=== PATIENT | male | born 1960 | race Caucasian/White ===

== ENCOUNTER 2016-12-13 20:00 | Emergency (ER) | payer OTHER ==
[~2016-12-13] VITALS: Ht 172.7 cm; Wt 69.5 kg
[2016-12-13 20:10] VITALS: Ht 172.7 cm; Wt 69.5 kg
[2016-12-13] MEDS ORDERED: NO ROUTINE MEDS (20:45)
--- NOTE | 2016-12-13 21:20 | ERPDOC ---
Departure Disposition Decision Date: December 13, 2016 Disposition Decision Time: 23:22 Disposition: 01 DISCHARGED HOME, SELF-CARE Impression Impression Impression: Primary Impression: Gastroenteritis Additional Impressions: Visual complaint Shoulder pain, right Chronicity: acute Qualified Codes: M25.511 - Pain in right shoulder Condition: Improved Seen By: Mid-level only Referrals: DOMINICK HORN II, MD (Family) Patient Instructions: Gastroenteritis (ED) Problems/Meds/Labs Reviewed?: Yes Medications reviewed and manag: Yes Additional Instructions: The CT of your head did not show any acute findings. Your labs were normal except for slight a elevation of your sodium and chloride which indicates you are dry. Drink plenty of fluids to hydrate. You may take 800mg of ibuprofen or OTC Aleve twice for shoulder pain (take with food). Follow with your eye doctor for re-evaluation of left eye if symptoms persist. Follow with your PCP if your symptoms are not improving. You may return to the ED (as discussed in return precautions). Follow treatment plan (see discharge symptoms). Follow up care ordered?: Yes Mental Status: Alert, Oriented HPI - General Medical General Chief Complaint: Dizzy Stated Complaint: PAIN IN NECK, DIZZY,NAUSEA Time Seen by Provider: 21:08 Source: patient HPI - General Medical Allergies: Coded Allergies: No Known Drug Allergies (Verified Allergy, Unknown, 12/13/16) Past History Vaccines Hx Pneumococcal Vaccination: Yes Physical Exam General Vitals and Pain First Documented Vital Signs Date Time Temp Pulse Resp B/P Pulse Ox O2 Delivery O2 Flow Rate FiO2 12/13/16 20:10 98.0 70 18 184/88 99 Room Air Weight: Kilograms: 69.500 Height (feet): 5 Height (inches): 8.00 Triage Pain Scale: Progress Results/Orders Orders Procedure Category Date Status Time Cmp - Comprehensive LAB 12/13/16 Complete Metabolic 21:37 Cbc W/Auto LAB 12/13/16 Complete Diff-Reflex Manual 21:37 Troponin I W LAB 12/13/16 Complete Hemolysis Index 21:37 Ua, Dip Wreflex LAB 12/13/16 Complete Microsc & News Intern 21:37 Ct Head W/O Contrast CT 12/13/16 Taken 21:37 Orthostatic Bp/Pulse EDM 12/13/16 Transmitted 21:37 Lab Results Laboratory Tests Test 12/13/16 21:52 12/13/16 22:41 Urine Collection Type Voided-not cc-midstr Urine Color Yellow Urine Turbidity Clear Urine pH 6.5 Urine Specific [place] <=1.005 Urine Protein Negative Urine Glucose (UA) Negative Urine Ketones Negative Urine Blood Negative Urine Nitrite Negative Urine Bilirubin Negative Urine Urobilinogen 0.2EU/DL Urine Leukocyte Esterase Negative Urinalysis Comment Microscopic not ind. White Blood Count 9.1T/MM3 Red Blood Count 4.66M/MM3 Hemoglobin 14.6GM/DL Hematocrit 41.8% Mean Corpuscular Volume 89.7UM3 Mean Corpuscular Hemoglobin 31.3UUG Mean Corpuscular Hemoglobin Concent 34.9GM/DL RDW Standard Deviation 37.7FL Platelet Count 210T/MM3 Mean Platelet Volume 9.9UM3 Immature Granulocyte % (Auto) 0.2% Neutrophils (%) (Auto) 50.3% Lymphocytes (%) (Auto) 37.2% Monocytes (%) (Auto) 9.5% Eosinophils (%) (Auto) 2.0% Basophils (%) (Auto) 0.8% Absolute Immature Granulocyte (auto 0.02T/MM3 Absolute Neutrophils (auto) 4.6T/MM3 Absolute Lymphocytes (auto) 3.4T/MM3 Absolute Monocytes (auto) 0.9T/MM3 Absolute Eosinophils (auto) 0.2T/MM3 Absolute Basophils (auto) 0.1T/MM3 Turbidity < 20 Sodium Level 145MEQ/L Potassium Level 4.1MEQ/L Chloride Level 108MEQ/L Carbon Dioxide Level 26MEQ/L Anion Gap 11MEQ/L Blood Urea Nitrogen 18.0MG/DL Creatinine 0.8MG/DL Glomerular Filtration Rate Calc 99 BUN/Creatinine Ratio 23RATIO Glucose Level 97MG/DL Calculated Osmolality 281MOSM/KG Calcium Level 9.0MG/DL Total Bilirubin 1.10MG/DL Icterus Index < 2 Aspartate Amino Transf (AST/SGOT) 23U/L Alanine Aminotransferase (ALT/SGPT) 34U/L Alkaline Phosphatase 71U/L Troponin I < 0.012ng/ml Total Protein 6.9G/DL Albumin 4.4G/DL Globulin 2.5G/DL Albumin/Globulin Ratio 1.8RATIO Chemistry Specimen Hemolysis < 15 CT CT : CT: Head no contrast (chest) Interpretation: Normal (no acute findings), Faxed Report LOTTIE VILLASENOR [employer] DES[employer] December 13, 2016 21:20
[2016-12-13 22:09] LABS: BLOOD, URINE NEGATIVE (NEGATIVE); COLOR,URINE YELLOW (YELLOW); LEUKOCYTE ESTERASE ,URINE NEGATIVE (NEGATIVE); NITRITE,URINE NEGATIVE (NEGATIVE); UROBILINOGEN,URINE 0.2 EU/DL (NORMAL)
[2016-12-13 22:47] LABS: BASOPHILS # (AUTO) 0.1 T/MM3 (0-0.2); BASOPHILS % (AUTO) 0.8 % (0-2); EOSINOPHILS # (AUTO) 0.2 T/MM3 (0-0.5); HCT - HEMATOCRIT 41.8 % (41-53); HGB - HEMOGLOBIN 14.6 GM/DL (13.5-17.5); IMMATURE GRANULOCYTE # (AUTO) 0.02 T/MM3 (0.00-0.03); IMMATURE GRANULOCYTE % (AUTO) 0.2 % (0.0-0.5); LYMPHOCYTES # (AUTO) 3.4 T/MM3 (1-4.8); LYMPHOCYTES % (AUTO) 37.2 % (23-45); MEAN CORPUSCULAR HGB 31.3 UUG (26-34); MEAN CORPUSCULAR HGB CONC(MCHC 34.9 GM/DL (31-37); MEAN CORPUSCULAR VOLUME 89.7 UM3 (80-100); MEAN PLATELET VOLUME 9.9 UM3 (9.4-12.4); MONOCYTES # (AUTO) 0.9 T/MM3 (0-0.8); MONOCYTES % (AUTO) 9.5 % (0-9.0); NEUTROPHILS #(AUTO)-ABSOLUTE 4.6 T/MM3 (1.8-7.7); NEUTROPHILS % (AUTO) 50.3 % (33-66); RED BLOOD COUNT 4.66 M/MM3 (4.50-5.90); WBC - WHITE BLOOD COUNT 9.1 T/MM3 (4.5-11.0)
[2016-12-13 22:56] LABS: ALBUMIN 4.4 G/DL (3.5-5.0); ALBUMIN/GLOBULIN RATIO 1.8 RATIO (1.1-2.2); ALKALINE PHOSPHATASE 71 U/L (38-126); ALT (SGPT) 34 U/L (21-72); ANION GAP 11 MEQ/L (5-15); AST (SGOT) 23 U/L (17-59); BUN/CREATININE RATIO 23 RATIO (6-26); CHLORIDE 108 MEQ/L (98-107); CO2 - CARBON DIOXIDE 26 MEQ/L (22-30); CREATININE 0.8 MG/DL (0.8-1.5); GLOMERULAR FILTRATION RATE 99; GLUCOSE 97 MG/DL (75-110); POTASSIUM 4.1 MEQ/L (3.6-5); SODIUM 145 MEQ/L (134-144); TOTAL PROTEIN 6.9 G/DL (6.3-8.2)
[2016-12-13 23:35] VITALS: BP 145/72; PULSE 68; RESP 16; TEMP 98; O2SAT 98
--- NOTE | 2016-12-14 10:39 | DI ---
Indication: ITS.REASON: dizziness, vision disturbance PROCEDURE: CT HEAD W/O CONTRAST: Encounter: Initial Comparison: None Technique: Axial CT images through the head were performed without contrast. Iterative Reconstruction dose reducing technique was utilized. FINDINGS: The ventricles are of normal size, shape, and contour for the patient's age. The brainstem, cerebellum, and cerebral hemispheres have a normal morphology and CT attenuation. There is no evidence of midline displacement. No hemorrhage, signs of acute territorial stroke, mass effect, mass lesions, or edema is evident. The visualized portions of the skull base, midface, and calvarium demonstrate no abnormality. The paranasal sinuses are well aerated and free of significant disease. The tympanic and mastoid cavities appear normal. IMPRESSION: No acute intracranial abnormality or hemorrhage. There is a preliminary report by [facility]. .
[2016-12-14] MEDS ORDERED: MECL-103 PO (11:48)
== END 2016-12-13 23:35 | disposition home or self-care (01) ==
LOC: ED 20:00
DX: K52.9 Noninfective gastroenteritis and colitis, unspecified (principal); R42 Dizziness and giddiness; M25.511 Pain in right shoulder; H53.8 Other visual disturbances
CPT/HCPCS: 36415; 80053; 81003; 84484; 85025

== ENCOUNTER 2016-12-14 10:43 | Emergency (ER) | payer OTHER ==
[~2016-12-14] VITALS: Ht 172.7 cm; Wt 68.6 kg
[~2016-12-14 10:43] MED LIST: NO ROUTINE MEDS
[2016-12-14 10:45] VITALS: TEMP 97.8; Ht 172.7 cm; Wt 68.6 kg
--- OUTSIDE RECORDS SUMMARY | 2016-12-14 10:48 | XMS REPORT | Continuity of Care Document ---
Author Author [facility] Organization [facility] Address Unknown Phone Unavailable Support Name Relationship Address Phone DOMINICK HORN II, MD Caregiver [address] [place] [address] Unavailable GHASSAN REDMOND DO Caregiver [address] [facility] [place] [address] Unavailable LAURIE MORENO Next Of Kin [address] [place] [address] Insurance Providers Guarantor Becky Moreno Address [address] [place] [address] Email [email or web address] Payer [employer] Policy Number [id number] Subscriber's Name Becky Moreno Relationship 18 Self Group Number [id number] Payer Standard Wps Policy Number [id number] Subscriber's Name Becky Moreno Relationship 18 Self Chief Complaint and Reason for Visit Chief Complaint Dizzy Reason for Visit [id number] Gastroenteritis Shoulder pain, right Problems Past Problems Medical Problem Onset Date Gastroenteritis Unknown Shoulder pain, right Unknown Visual complaint Unknown Medications Current Home Medications Medication Dose Units Route Directions Days Qty Instructions Start Date No Routine Meds 12/13/16 Social History Social History Problem Response Recorded Date/Time Onset Date Status Hx Substance Use No 12/13/2016 8:58pm Not Applicable Not Applicable Hx Alcohol Use Y rare 12/13/2016 8:58pm Not Applicable Not Applicable Query Response Start Date Stop Date Smoking Status Never smoker Hospital Discharge Instructions No hospital discharge instructions. Plan of Care Discharge Date 12/13/16 11:35pm Disposition 01 DISCHARGED HOME, SELF-CARE Condition at Discharge Improved Instructions/Education Provided Gastroenteritis (ED) Prescriptions See Medication Section Referrals DOMINICK HORN II, MD Address: [address] [place] [address] Additional Instructions/Education The CT of your head did not show any acute findings. Your labs were normal except for slight a elevation of your sodium and chloride which indicates you are dry. Drink plenty of fluids to hydrate. You may take 800mg of ibuprofen or OTC Aleve twice for shoulder pain (take with food). Follow with your eye doctor for re-evaluation of left eye if symptoms persist. Follow with your PCP if your symptoms are not improving. You may return to the ED (as discussed in return precautions). Follow treatment plan (see discharge symptoms). Care Plan and Goals Physician Care Plan Problem: Gastroenteritis, Right shoulder pain, Vision complaint Goal: Follow up with primary care provider Instructions: Take medications and follow care plan as discussed/written Functional Status No functional status results. Allergies, Adverse Reactions, Alerts Allergen Type Severity Reaction Status Last Updated No Known Drug Allergies Allergy Unknown Active 12/13/16 Immunizations Query Response on File Recorded Date/Time Hx Influenza Vaccination 200709/28/08 9:58am Hx Pneumococcal Vaccination Yes 09/28/08 9:58am Hx Influenza Vaccination 200709/28/08 9:58am Vital Signs Acute Vital Signs Vital Response Date/Time Temperature (Fahrenheit) 98.0 deg F (96.8 - 99.1) 12/13/2016 11:35pm Temperature (Calculated Celsius) 36.02123 degrees C (36.0 - 37.3) 12/13/2016 11:35pm Pulse Rate (adult) 68 bpm (60 - 100) 12/13/2016 11:35pm Respiratory Rate 16 breaths/min (10 - 20) 12/13/2016 11:35pm O2 Sat by Pulse Oximetry 98 % (90 - 100) 12/13/2016 11:35pm Blood Pressure 145/72 mm Hg 12/13/2016 11:35pm Height (Feet) 5 feet 12/13/2016 8:10pm Height (Inches) 8.00 inches 12/13/2016 8:10pm Weight (Kilograms) 69.500 kg 12/13/2016 8:10pm Body Mass Index (BMI) 23.0 12/13/2016 8:10pm Results Laboratory Results Test Name Result Units Flags Reference Collection Date/Time Result Date/ Time Comments White Blood Count 9.1 T/MM3 4.5-11.0 12/13/2016 10:41pm 12/13/2016 10: 47pm Red Blood Count 4.66 M/MM3 4.50-5.90 12/13/2016 10:41pm 12/13/2016 10: 47pm Hemoglobin 14.6 GM/DL 13.5-17.5 12/13/2016 10:12/13/2016 10:47pm Hematocrit 41.8 % 41-53 12/13/2016 10:12/13/2016 10:47pm Mean Corpuscular Volume 89.7 UM3 80-100 12/13/2016 10:41pm 12/13/2016 10:47pm Mean Corpuscular Hemoglobin 31.3 UUG 26-34 12/13/2016 10:412016 10:47pm Mean Corpuscular Hemoglobin Concent 34.9 GM/DL 31-37 12/13/2016 10:12/13/2016 10:47pm RDW Standard Deviation 37.7 FL 36.9-50.2 12/13/2016 10:12/13/2016 10:47pm Platelet Count 210 T/MM3 130-400 12/13/2016 10:4112/13/2016 10:47pm Mean Platelet Volume 9.9 UM3 9.4-12.4 12/13/2016 10:4112/13/2016 10: 47pm Neutrophils (%) (Auto) 50.3 % 33-66 12/13/2016 10:pm 12/13/2016 10: 47pm Lymphocytes (%) (Auto) 37.2 % 23-45 12/13/2016 10:12/13/2016 10: 47pm Monocytes (%) (Auto) 9.5 % H 0-9.0 12/13/2016 10:12/13/2016 10: 47pm Eosinophils (%) (Auto) 2.0 % 0-4 12/13/2016 10:12/13/2016 10:47pm Basophils (%) (Auto) 0.8 % 0-2 12/13/2016 10:12/13/2016 10:47pm Immature Granulocyte % (Auto) 0.2 % 0.0-0.5 12/13/2016 10:2016 10:47pm Absolute Neutrophils (auto) 4.6 T/MM3 1.8-7.7 12/13/2016 10:412016 10:47pm Absolute Lymphocytes (auto) 3.4 T/MM3 1-4.8 12/13/2016 10:41pm 2016 10:47pm Absolute Monocytes (auto) 0.9 T/MM3 H 0-0.8 12/13/2016 10:41pm 2016 10:47pm Absolute Eosinophils (auto) 0.2 T/MM3 0-0.5 12/13/2016 10:41pm 2016 10:47pm Absolute Basophils (auto) 0.1 T/MM3 0-0.2 12/13/2016 10:41pm 2016 10:47pm Absolute Immature Granulocyte (auto 0.02 T/MM3 0.00-0.03 12/13/2016 10: 41pm 12/13/2016 10:47pm Icterus Index < 2 0-7 12/13/2016 10:41pm 12/13/2016 10:56pm Chemistry Specimen Hemolysis < 15 0-25 12/13/2016 10:pm 12/13/2016 10:56pm 0-25: Specimen Exhibited No Hemolysis. Turbidity < 20 0-20 12/13/2016 10:41pm 12/13/2016 10:56pm Sodium Level 145 MEQ/L H 134-144 12/13/2016 10:41pm 12/13/2016 10:56pm Potassium Level 4.1 MEQ/L 3.6-5 12/13/2016 10:41pm 12/13/2016 10:56pm Chloride Level 108 MEQ/L H 98-107 12/13/2016 10:41pm 12/13/2016 10:56pm Carbon Dioxide Level 26 MEQ/L 22-30 12/13/2016 10:41pm 12/13/2016 10: 56pm Anion Gap 11 MEQ/L 5-15 12/13/2016 10:41pm 12/13/2016 10:56pm Blood Urea Nitrogen 18.0 MG/DL 9-12/13/2016 10:41pm 12/13/2016 10: 56pm Creatinine 0.8 MG/DL 0.8-1.5 12/13/2016 10:41pm 12/13/2016 10:56pm BUN/Creatinine Ratio 23 RATIO 6-26 12/13/2016 10:41pm 12/13/2016 10: 56pm Glomerular Filtration Rate Calc 99 12/13/2016 10:41pm 12/13/2016 10 :56pm Glucose Level 97 MG/DL 75-110 12/13/2016 10:41pm 12/13/2016 10:56pm Calculated Osmolality 281 MOSM/KG H 261-280 12/13/2016 10:41pm 2016 10:56pm Calcium Level 9.0 MG/DL 8.4-10.2 12/13/2016 10:41pm 12/13/2016 10:56pm Total Bilirubin 1.10 MG/DL 0.20-1.30 12/13/2016 10:41pm 12/13/2016 10: 56pm Alkaline Phosphatase 71 U/L 38-126 12/13/2016 10:41pm 12/13/2016 10: 56pm Total Protein 6.9 G/DL 6.3-8.2 12/13/2016 10:pm 12/13/2016 10:56pm Albumin 4.4 G/DL 3.5-5.0 12/13/2016 10:pm 12/13/2016 10:56pm Globulin 2.5 G/DL 2.4-3.6 12/13/2016 10:41pm 12/13/2016 10:56pm Albumin/Globulin Ratio 1.8 RATIO 1.1-2.2 12/13/2016 10:41pm 12/13/2016 10:56pm Aspartate Amino Transf (AST/SGOT) 23 U/L 17-59 12/13/2016 10:41pm 12/13 10:56pm Alanine Aminotransferase (ALT/SGPT) 34 U/L 21-72 12/13/2016 10:41pm 10:56pm Troponin I < 0.012 ng/ml 0-0.12 12/13/2016 10:12/13/2016 11:07pm Troponin values with a difference of 55% increase from orginal troponin value represent a true biological DELTA value. (%increase Calc=Orginal Troponin value, divided by subsequent Troponin value, multiplied by 100) Urine Collection Type VOIDED-NOT CC-MIDSTR 12/13/2016 9:52pm 2016 10:09pm Urine Color YELLOW YELLOW 12/13/2016 9:pm 12/13/2016 10:09pm Urine Turbidity CLEAR CLEAR 12/13/2016 9:pm 12/13/2016 10:09pm Urine Specific [place] <=1.005 L 1.015-1.025 12/13/2016 9:52pm 2016 10:09pm Urine pH 6.5 5.0-8.0 12/13/2016 9:52pm 12/13/2016 10:09pm Urine Leukocyte Esterase NEGATIVE NEGATIVE 12/13/2016 9:52pm 2016 10:09pm Urine Nitrite NEGATIVE NEGATIVE 12/13/2016 9:52pm 12/13/2016 10:09pm Urine Protein NEGATIVE NEGATIVE 12/13/2016 9:52pm 12/13/2016 10:09pm Urine Glucose (UA) NEGATIVE NEGATIVE 12/13/2016 9:52pm 12/13/2016 10: 09pm Urine Ketones NEGATIVE NEGATIVE 12/13/2016 9:52pm 12/13/2016 10:09pm Urine Urobilinogen 0.2 EU/DL NORMAL 12/13/2016 9:52pm 12/13/2016 10: 09pm Urine Bilirubin NEGATIVE NEGATIVE 12/13/2016 9:52pm 12/13/2016 10: 09pm Urine Blood NEGATIVE NEGATIVE 12/13/2016 9:52pm 12/13/2016 10:09pm Urinalysis Comment MICROSCOPIC NOT IND. 12/13/2016 9:52pm 2016 10:09pm Procedures No known history of procedures. Encounters Encounter Location Arrival/Admit Date Discharge/Depart Date Attending Provider Departed Emergency Room [facility] 12/13/16 8:00pm 12/13/16 11: 35pm GHASSAN REDMOND DO Recent Diagnosis
[2016-12-14] MEDS ORDERED: MECL-103 PO (11:48)
--- NOTE | 2016-12-14 11:48 | ERPDOC ---
Departure Disposition Decision Date: December 14, 2016 Disposition Decision Time: 11:46 Disposition: 01 DISCHARGED HOME, SELF-CARE Impression Impression Impression: Primary Impression: Vertigo Severity: Moderate Condition: Improved Seen By: Physician only Referrals: DOMINICK HORN II, MD (Family) 2 Days Patient Instructions: Benign Paroxysmal Positional Vertigo (ED) Problems/Meds/Labs Reviewed?: Yes Medications reviewed and manag: Yes Follow up care ordered?: Yes Mental Status: Alert, Oriented Scripts Meclizine HCl (Meclizine HCl) 25 Mg Tablet 25 MG PO TID for 10 Days, #30 TAB 0 Refills Take 1 tablet, by mouth, 2 times a day. Prov: RIDGE SIMPSON DO 12/14/16 HPI - General Medical General Chief Complaint: Dizzy Stated Complaint: DIZZY, CANT SLEEP, PAIN Time Seen by Provider: 11:35 Source: patient Exam Limitations: no limitations HPI - General Medical Initial Comments 56-year-old male presents to emergency department at the chief complaint of dizziness. Patient was seen and evaluated yesterday in the emergency department with an unremarkable evaluation. Patient states that his symptoms are still persistent. Patient describes a sensation of spinning. This is easily reproducible with movement of the head turning of the head right or left. Patient denies any pain or discomfort. Patient has no other complaints or associated symptoms. He was at home when his symptoms began. Symptoms began approximately 3-4 days ago. Patient declined Antivert prescription yesterday in the emergency Department and returns today requesting it. Occurred At: home Onset: other (Intermittent. ) Allergies: Coded Allergies: No Known Drug Allergies (Verified Allergy, Unknown, 12/13/16) Past History Past Medical History Pt denies signifigant PMH Surgical History Denies Surgeries Family History Family History: Negative Vaccines Hx Pneumococcal Vaccination: Yes Social History Smoking Status: Never smoker Substance Use Type: does not use Alcohol Intake: none Review of Systems Constitutional Constitutional: dizziness, DENIES: chills, fever Eyes General: DENIES: erythema, exudate Lids/Accessories: DENIES: erythema, swelling Vision: DENIES: acuity, blurring ENMT Ears: DENIES: drainage, erythema Hearing: DENIES: hearing loss Balance: DENIES: ataxia, falling to one side Sinuses: DENIES: congestion, pain Nose: DENIES: nosebleeds, pain Mouth/Throat: DENIES: painful swallowing, sore throat Teeth: DENIES: pain Jaw: DENIES: pain Cardiovascular Cardiac: DENIES: chest pain, dyspnea on exertion Rhythm/Rate: DENIES: irregular beat, palpitations Vascular: DENIES: pedal edema, unilateral swelling Pulmonary Respiratory: DENIES: cough, dyspnea, pleuritic chest pain, sputum GI Upper Abdomen: DENIES: nausea, pain, vomiting Lower Abdomen: DENIES: diarrhea, pain General: DENIES: burning, dysuria, frequency, urgency Musculoskeletal General: DENIES: joint pain, tenderness Integumentary Skin: DENIES: itching, rash Neurological General: DENIES: change in strength, headache, numbness, weakness Psychiatric Psychiatric: DENIES: emotional instability, suicidal ideation/attempt Endocrine Endocrine: DENIES: polydipsia, polyphagia Hematologic/Lymphatic Hematologic/Lymphatic: DENIES: frequent nosebleeds, lymphadenopathy Allergic/Immunological Allergic/Immunoligical: DENIES: allergic reactions, hives Physical Exam General General Nourishment: well nourished, well developed, appears stated age, no acute distress, adult General Body Habitus: well groomed Vitals and Pain First Documented Vital Signs Date Time Temp Pulse Resp B/P Pulse Ox O2 Delivery O2 Flow Rate FiO2 12/14/16 10:45 97.8 66 18 150/70 98 Room Air Weight: Kilograms: 68.600 Height (feet): 5 Height (inches): 8.00 Triage Pain Scale: RN VS reviewed by Provider: Yes Normal Exams: Head: Normocephalic w/o trauma Eyes: Pupils are PERRLA w/ EOMI, No scleral icterus, irritation, or foreign bodies noted ENMT: No facial trauma, nasal exudates, pharyngeal erythema, or exudates are noted Dental: No fractured, loose, or missing teeth noted Neck: Full range of motion, without adenopathy, JVD, bruits or thyromegaly Chest/Resp: Clear all [place], with good airflow, and symmetry bilaterally CV: Regular rate and rhythm, without murmur or gallop, Pulses 2+ all extremities, capillary refill, <2 seconds all ext., no pedal edema noted Abdomen: Bowel sounds positive, soft, non-tender, non-distended, no hepatosplenomegaly, masses or bruits noted Lymphatic: No lymphadenopathy, or lymphedema noted Musculoskeletal: No tenderness, or deformity noted, good range of motion, all extremities Integumentary: No rashes, hives, or bruising noted, hair and nails, without abnormality Neurologic: Patient is alert, and oriented, cranial nerves, motor/sensory/ cerebellar, exams w/o gross deficits, to observation Psychiatric: Patient exhibits, appropriate attention, emotion and affect Neurologic (brief) Comments Alert and oriented x 4. CN 2-12 intact. Sensation intact. Strength normal. Gait normal. Reflexes 2/4 in all extremities. Absent Babinski bilaterally. No speech. Normal motor. Normal coordination. Unremarkable neurologic exam. No focal neurologic deficit. Differential Diagnoses Considering: Other (Vertigo, BPPV, Dehydration, Gastroenteritis) Progress Progress Progress Patient is recommended to undergo CBC/CMP/troponin/UA/PT/PTT/CT scan head/chest x-ray/EKG which he declines. Patient states he does not wish to repeat lab work or imaging. Patient is requesting the Antivert prescription at this time. He does not wish to undergo any other evaluation or treatment today. Risk versus benefit of this is discussed in detail with the patient and family and questions are answered. Patient verbalizes agreement and understanding. Patient does not change his mind. Prescription for Antivert is provided. Patient is discharged home in accordance with his wishes in improved condition. He is to follow up as instructed. Patient is to return to the emergency department if his condition worsens or changes in any manner. Patient is in agreement with the current plan of management. He is to follow up as instructed. RIDGE SIMPSON DO December 14, 2016 11:48
[2016-12-14 11:59] VITALS: BP 128/79; PULSE 60; RESP 18; O2SAT 97
--- NOTE | 2016-12-14 11:59 | NUR ---
DISCHARGE WRITTEN INSTRUCTIONS WITH MECLIZINE RX REVIEWED AND SENT WITH PT. PT VERBALIZES UNDERSTANDING OF DI AND MEDICATION, DENIES QUESTIONS. PT AMBULATES OUT OF ER WITH STEADY GAIT AT THIS TIME.
== END 2016-12-14 11:59 | disposition home or self-care (01) ==
LOC: ED 10:43
DX: R42 Dizziness and giddiness (principal)